=== PATIENT | female | born 1990 | race Caucasian/White ===

== ENCOUNTER 2019-06-18 13:48 | Emergency (ER) | payer OTHER ==
--- NOTE | 2019-06-18 14:15 | EDM.PDOC ---
ED HPI GENERAL MEDICAL PROBLEM - General Chief Complaint: Chest Pain Stated Complaint: CHEST PAIN Time Seen by Provider: 06/18/19 14:14 Source of Information: Reports: Patient, RN, RN Notes Reviewed History Limitations: Reports: No Limitations - History of Present Illness INITIAL COMMENTS - FREE TEXT/NARRATIVE: Pt presents to ER by POV with c/o squeezing chest pain that began this morning at approx. 1145HRS, and was associated with numbness and tingling from the B/L elbows to the finger tips. Pt states that has happened many times in the past, but usually goes away after a few minutes either on it's own or if she drinks cold water. Pt reports Hx of multiple episodes of "vasovagal syncope", and acid reflux. She denies any Hx of heart disease or arrhythmias. Onset: Today Duration: Chronic, Intermittent, Recurring, Resolved Prior to Arrival Location: Reports: Chest, Abdomen Quality: Reports: Burning (Acid reflux), Same as Previous Episode, Other ( Squeezing) Severity: Severe Improves with: Reports: Other (Drinking cold water) Worsens with: Reports: Eating Associated Symptoms: Reports: No Other Symptoms Treatments TITLE CLERK: Reports: Other Medication(s) (Omeprazole) Chest Pain Score (Numeric/FACES): 7 - Related Data Allergies Allergy/AdvReac Type Severity Reaction Status Date / Time No Known Allergies Allergy Verified 12/05/15 13:05 Home Meds: Home Meds . [No Known Home Meds] 12/05/15 [History] Past Medical History Cardiovascular History: Reports: Syncope Gastrointestinal History: Reports: GERD Endocrine/Metabolic History: Reports: Obesity/BMI 30+ Social & Family History - Family History Family Medical History: Noncontributory - Tobacco Use Smoking Status *Q: Never Smoker ED ROS GENERAL - Review of Systems Review Of Systems: ROS reveals no pertinent complaints other than HPI. - Physical Exam Exam: See Below Exam Limited By: No Limitations General Appearance: Alert, WD/WN, No Apparent Distress, Obese Eye Exam: Bilateral Eye: EOMI, Normal Inspection, PERRL Nose: Normal Inspection, No Blood Throat/Mouth: Normal Inspection, Normal Lips, Normal Teeth, Normal Gums, Normal Oropharynx, Normal Voice, No Airway Compromise Head Exam: Atraumatic, Normocephalic Neck: Normal Inspection, Supple, Non-Tender, Full Range of Motion. No: Lymphadenopathy (L), Lymphadenopathy (R) Respiratory/Chest: No Respiratory Distress, Lungs Clear, Normal Breath Sounds, No Accessory Muscle Use, Chest Non-Tender Cardiovascular: Normal Peripheral Pulses, Regular Rate, Rhythm, No Edema, No Gallop, No JVD, No Murmur, No Rub GI/Abdominal: Normal Bowel Sounds, Soft, No Organomegaly, No Distention, No Abnormal Bruit, No Mass, Tender (Epigastric region). No: Guarding, Rigid, Rebound (Female) Exam: Deferred Rectal (Female) Exam: Deferred Neuro Exam (Abbreviated): Alert, Oriented, CN II-XII Intact, Normal Cognition, Normal Gait, No Motor/Sensory Deficits Back Exam: Normal Inspection Extremities: Normal Inspection, Normal Range of Motion, Non-Tender, No Pedal Edema, Normal Capillary Refill Psychiatric: Normal Affect, Normal Mood Skin Exam: Warm, Dry, Intact, Normal Color, No Rash EKG INTERPRETATION EKG Date: 06/18/19 Time: 14:05 Rhythm: Other (SR) Rate (Beats/Min): 57 [place]: Normal P-Wave: Present QRS: Normal ST-T: Normal QT: Normal Comparison: NA - No Prior EKG Course - Vital Signs Last Recorded V/S: Last Vital Signs Temp 98.5 F 06/18/19 13:52 Pulse 61 06/18/19 14:27 Resp 21 H 06/18/19 14:27 BP 109/72 06/18/19 14:27 Pulse Ox 100 06/18/19 14:27 Orthostatic Blood Pressure [ 109/72 Standing] Orthostatic Blood Pressure [ 114/68 Sitting] Orthostatic Blood Pressure [ 110/67 Supine] Not orthostatic. - Orders/Labs/Meds Orders: Active Orders 24 hr Category Date Time Status EKG 12 Lead [EKG Documentation Completion] [RC] STAT Care 06/18/19 14:21 Active Orthostatic Vital Signs [RC] ASDIRECTED Care 06/18/19 14:27 Active Chest 1V Frontal [CR] Stat Exams 06/18/19 14:21 Taken HCG QUALITATIVE,URINE [URCHEM] Stat Lab 06/18/19 14:49 Ordered TSH ULTRASENSITIVE [CHEM] Stat Lab 06/18/19 14:30 Received UA RFX TRICIA AND CULT IF INDIC [URIN] Stat Lab 06/18/19 14:49 Ordered Labs: Laboratory Tests 06/18/19 06/18/19 06/18/19 Range/Units 14:30 14:30 14:30 WBC 5.1 (5.0-10.0) 10^3/uL RBC 4.24 (4.2-5.4) 10^6/uL Hgb 13.4 (12.0-16.0) g/dL Hct 38.9 (37.0-47.0) % MCV 91.7 (80-100) fL MCH 31.6 (27.0-34.0) pg MCHC 34.4 (33.0-35.0) g/dL Plt Count 223 (150-450) 10^3/uL Neut % (Auto) 54.7 (42.2-75.2) % Lymph % (Auto) 35.2 (20.5-50.1) % [place] % (Auto) 7.0 (2-8) % Eos % (Auto) 2.7 (1.0-3.0) % Baso % (Auto) 0.4 (0.0-1.0) % D-Dimer, Quantitative < 100 (0-400) ng/mL Sodium 137 (135-145) mmol/L Potassium 4.2 (3.6-5.0) mmol/L Chloride 103 (101-111) mmol/L Carbon Dioxide 27.0 (21.0-31.0) mmol/L Anion Gap 11.2 BUN 16 (7-18) mg/dL Creatinine 0.8 (0.6-1.3) mg/dL Est Cr Clr Drug Dosing 93.37 mL/min Estimated GFR (MDRD) > 60 BUN/Creatinine Ratio 20.00 Glucose 108 H (74-105) mg/dL Calcium 9.1 (8.4-10.2) mg/dl Magnesium 2.1 (1.8-2.5) mg/dL Total Bilirubin 0.7 (0.2-1.0) mg/dL AST 22 (10-42) IU/L ALT 31 (10-60) IU/L Alkaline Phosphatase 31 L (42-121) IU/L Troponin I < 0.02 (0.00-0.02) ng/ml Total Protein 6.9 (6.7-8.2) g/dl Albumin 4.0 (3.2-5.5) g/dl Globulin 2.9 Albumin/Globulin Ratio 1.38 Amylase 76 (28-100) U/L Lipase 39 (22-51) U/L Urine Color (YELLOW) Urine Appearance (CLEAR) Urine pH (5.0-9.0) Ur Specific [place] (1.005-1.030) Urine Protein (NEGATIVE) Urine Glucose (UA) (NEGATIVE) Urine Ketones (NEGATIVE) Urine Occult Blood (NEGATIVE) Urine Nitrite (NEGATIVE) Urine Bilirubin (NEGATIVE) Urine Urobilinogen (0.2-1.0) mg/dL Ur Leukocyte Esterase (NEGATIVE) Urine HCG, Qual 06/18/19 06/18/19 Range/Units 14:35 14:35 WBC (5.0-10.0) 10^3/uL RBC (4.2-5.4) 10^6/uL Hgb (12.0-16.0) g/dL Hct (37.0-47.0) % MCV (80-100) fL MCH (27.0-34.0) pg MCHC (33.0-35.0) g/dL Plt Count (150-450) 10^3/uL Neut % (Auto) (42.2-75.2) % Lymph % (Auto) (20.5-50.1) % [place] % (Auto) (2-8) % Eos % (Auto) (1.0-3.0) % Baso % (Auto) (0.0-1.0) % D-Dimer, Quantitative (0-400) ng/mL Sodium (135-145) mmol/L Potassium (3.6-5.0) mmol/L Chloride (101-111) mmol/L Carbon Dioxide (21.0-31.0) mmol/L Anion Gap BUN (7-18) mg/dL Creatinine (0.6-1.3) mg/dL Est Cr Clr Drug Dosing mL/min Estimated GFR (MDRD) BUN/Creatinine Ratio Glucose (74-105) mg/dL Calcium (8.4-10.2) mg/dl Magnesium (1.8-2.5) mg/dL Total Bilirubin (0.2-1.0) mg/dL AST (10-42) IU/L ALT (10-60) IU/L Alkaline Phosphatase (42-121) IU/L Troponin I (0.00-0.02) ng/ml Total Protein (6.7-8.2) g/dl Albumin (3.2-5.5) g/dl Globulin Albumin/Globulin Ratio Amylase (28-100) U/L Lipase (22-51) U/L Urine Color Light yellow (YELLOW) Urine Appearance Clear (CLEAR) Urine pH 7.5 (5.0-9.0) Ur Specific [place] 1.015 (1.005-1.030) Urine Protein Negative (NEGATIVE) Urine Glucose (UA) Negative (NEGATIVE) Urine Ketones Negative (NEGATIVE) Urine Occult Blood Negative (NEGATIVE) Urine Nitrite Negative (NEGATIVE) Urine Bilirubin Negative (NEGATIVE) Urine Urobilinogen 0.2 (0.2-1.0) mg/dL Ur Leukocyte Esterase Negative (NEGATIVE) Urine HCG, Qual Negative - Radiology Interpretation Free Text/Narrative:: XR Chest: no acute process, see Rad. report. Departure - Departure Time of Disposition: 15:10 Disposition: Home, Self-Care 01 Condition: Good Clinical Impression: Atypical chest pain - Discharge Information *PRESCRIPTION DRUG MONITORING PROGRAM REVIEWED*: No *COPY OF PRESCRIPTION DRUG MONITORING REPORT IN PATIENT LANEY: No Instructions: Esophageal Spasm, Syncope, Nonspecific Chest Pain Forms: ED Department Discharge Additional Instructions: Rx: Protonix 40mg Follow up in clinic for recheck and consideration of a cardiac event monitor and referral to a GI specialist if the coal handler is negative. - My Orders Last 24 Hours: My Active Orders 06/18/19 14:21 EKG 12 Lead [EKG Documentation Completion] [RC] STAT Chest 1V Frontal [CR] Stat 06/18/19 14:27 Orthostatic Vital Signs [RC] ASDIRECTED 06/18/19 14:30 TSH ULTRASENSITIVE [CHEM] Stat 06/18/19 14:49 HCG QUALITATIVE,URINE [URCHEM] Stat UA RFX TRICIA AND CULT IF INDIC [URIN] Stat - Assessment/Plan Last 24 Hours: My Active Orders 06/18/19 14:21 EKG 12 Lead [EKG Documentation Completion] [RC] STAT Chest 1V Frontal [CR] Stat 06/18/19 14:27 Orthostatic Vital Signs [RC] ASDIRECTED 06/18/19 14:30 TSH ULTRASENSITIVE [CHEM] Stat 06/18/19 14:49 HCG QUALITATIVE,URINE [URCHEM] Stat UA RFX TRICIA AND CULT IF INDIC [URIN] Stat
[2019-06-18 14:30] VITALS: BP 109/72; PULSE 61
[2019-06-18 15:01] LABS: ANION GAP 11.2; CHLORIDE,CL 103 mmol/L (101-111); SODIUM,NA 137 mmol/L (135-145)
--- NOTE | 2019-06-18 15:21 | CR ---
EXAMINATION: Chest 1V Frontal SEX: Female AGE: 28 years CLINICAL HISTORY: 28-year-old female complaining of chest pain. INTERPRETATION: (Upright AP chest film) 1. Normal cardiac silhouette. No pulmonary venous congestion, cephalization of flow, alveolar edema or dependent effusion. 2. External quality assurance monitor final leads. 3. No lung mass, hilar lymphadenopathy or focal lobar pneumonia. 4. No atelectasis/collapse. 5. No pneumothorax or free subdiaphragmatic air. CONCLUSION: Negative exam.
== END 2019-06-18 15:23 | disposition home or self-care (01) ==
LOC: DL.ED 13:48
DX: R07.89 Other chest pain (principal); E66.9 Obesity, unspecified; Z68.33 Body mass index [BMI] 33.0-33.9, adult
CPT/HCPCS: 36415; 71045; 80053; 81003; 81025; 82150; 83690; 83735; 84443; 84484; 85025; 85379; 93005; 99285-25

== ENCOUNTER 2020-12-26 01:43 | Emergency (ER) | payer OTHER ==
[2020-12-26] MEDS ORDERED: Ondansetron 4 MG/2 ML SDV IVPUSH ONE (02:00)
[2020-12-26] MEDS ORDERED: Sodium Chloride 0.9% 1,000 ML IV ONE (02:00)
[2020-12-26 02:05] VITALS: BP 120/76; PULSE 68
--- NOTE | 2020-12-26 02:46 | EDM.PDOC ---
ED HPI GENERAL MEDICAL PROBLEM - General Stated Complaint: MIGRAINE, HORRIBLE Time Seen by Provider: 12/26/20 02:30 Source of Information: Reports: Patient, RN, RN Notes Reviewed History Limitations: Reports: No Limitations - History of Present Illness INITIAL COMMENTS - FREE TEXT/NARRATIVE: Patient presents to the ED via personal vehicle with complaints of headache. The patient attest to a history of migraines, but is not currently on control therapy. The patient states her headache symptoms began at approximately 1800 yesterday and has progressively worsened in that time. The headache has been refractory to Tylenol which she took at midnight. She attests to photophobia and nausea, as well. She denies recent illness, fever, shaking chills, vision changes, cough, sore throat, palpitations, vomiting, or diarrhea. She states her LMP was 12/12/20. The patient denies tobacco or recreational drug use. She does attest to alcohol use and reports she drank three 12oz cans of beer around noon yesterday while golfing as well as one seltzer drink with dinner around 1700. The patient does attest to recent history of a concussion about two to three weeks ago due to a softball flying into her left eye. She denies thunderclap headaches, changes in vision, projectile vomiting, mentation changes, or seizure-like activity. Headache Pain Score (Numeric/FACES): 10 - Related Data Allergies Allergy/AdvReac Type Severity Reaction Status Date / Time No Known Allergies Allergy Verified 12/26/20 02:00 Home Meds: Home Meds . [No Known Home Meds] 12/05/15 [History] Past Medical History Cardiovascular History: Reports: Syncope Gastrointestinal History: Reports: GERD Neurological History: Reports: Migraines Endocrine/Metabolic History: Reports: Obesity/BMI 30+ Social & Family History - Family History Family Medical History: No Pertinent Family History - Tobacco Use Tobacco Use Status *Q: Never Tobacco User Second Hand Smoke Exposure: No - Caffeine Use Caffeine Use: Reports: Coffee - Recreational Drug Use Recreational Drug Use: No ED ROS GENERAL - Review of Systems Review Of Systems: Comprehensive ROS is negative, except as noted in HPI. - Physical Exam Exam: See Below Exam Limited By: No Limitations General Appearance: Alert, No Apparent Distress Eye Exam: Bilateral Eye: EOMI, Normal Inspection, PERRL (4mm) Ears: Normal External Exam, Normal Canal, Hearing Grossly Normal, Normal TMs Nose: Normal Inspection, Normal Mucosa, No Blood Throat/Mouth: Normal Inspection, Normal Oropharynx, Normal Voice, No Airway Compromise Head Exam: Atraumatic, Normocephalic, Facial Abrasions (Superficial, scabbed abrasion to left medial eyelid), Facial Tenderness (To palpation of left periorbital area). No: Facial Ecchymosis, Facial Lacerations, Facial Swelling Neck: Normal Inspection, Supple, Non-Tender, Full Range of Motion Respiratory/Chest: No Respiratory Distress, Lungs Clear, Normal Breath Sounds, No Accessory Muscle Use, Chest Non-Tender Cardiovascular: Normal Peripheral Pulses, Regular Rate, Rhythm, No Edema, No Gallop, No JVD, No Murmur, No Rub GI/Abdominal: Normal Bowel Sounds, Soft, Non-Tender, No Distention, No Mass, Pelvis Stable (Female) Exam: Deferred Rectal (Female) Exam: Deferred Neuro Exam (Abbreviated): Alert, Oriented, CN II-XII Intact, Normal Cognition, Normal Gait, Normal Reflexes, No Motor/Sensory Deficits Back Exam: Normal Inspection, Full Range of Motion Extremities: Normal Inspection, Normal Range of Motion, Non-Tender, No Pedal Edema, Normal Capillary Refill Psychiatric: Normal Affect, Normal Mood Skin Exam: Warm, Dry, Intact, Normal Color, No Rash Course - Vital Signs Last Recorded V/S: Last Vital Signs Temp 97.6 F 12/26/20 02:00 Pulse 68 12/26/20 02:00 Resp 16 12/26/20 02:00 BP 120/76 12/26/20 02:00 Pulse Ox 97 12/26/20 02:00 - Orders/Labs/Meds Meds: Medications Discontinued Medications Generic Name Dose Route Start Last Admin Trade Name Freq PRN Reason Stop Dose Admin Diphenhydramine HCl 50 mg 12/26/20 03:51 12/26/20 03:57 Diphenhydramine 50 Mg/Ml Sdv IVPUSH 12/26/20 03:52 50 mg ONETIME ONE Administration Sodium Chloride 1,000 mls @ 999 mls/hr 12/26/20 02:00 12/26/20 02:27 Normal Saline IV 12/26/20 03:00 999 mls/hr .BOLUS ONE Administration Ketorolac Tromethamine 30 mg 12/26/20 03:51 12/26/20 03:57 Ketorolac 30 Mg/Ml Sdv IVPUSH 12/26/20 03:52 30 mg ONETIME ONE Administration Ondansetron HCl 4 mg 12/26/20 02:00 12/26/20 02:27 Ondansetron 4 Mg/2 Ml Sdv IVPUSH 12/26/20 02:01 4 mg ONETIME ONE Administration - Re-Assessments/Exams Free Text/Narrative Re-Assessment/Exam: 12/26/20 Will treat migraine headache with NS 1L IVB. Will administer Zofran 4mg IVP for nausea. Patient states pressure of migraine has improved but continues to experience pain; will treat with Toradol 30mg IVP and Benadryl 50mg IVP. Patient verbalized improvement in headache following medications. Red flag signs and symptoms which would warrant reevaluation reviewed. Patient verbalized understanding and agreement with the plan of care. Departure - Departure Time of Disposition: 04:26 Disposition: Home, Self-Care 01 Condition: Good Clinical Impression: Migraine Qualifiers: Migraine type: without aura Status migrainosus presence: without status migrainosus Intractability: not intractable Qualified Code(s): G43.009 - Migraine without aura, not intractable, without status migrainosus - Discharge Information *PRESCRIPTION DRUG MONITORING PROGRAM REVIEWED*: Not Applicable *COPY OF PRESCRIPTION DRUG MONITORING REPORT IN PATIENT LANEY: Not Applicable Instructions: Migraine Headache, [id number] Forms: ED Department Discharge Additional Instructions: 1.) Follow up with your primary care provider regarding today's visit. 2.) You may take acetaminophen (Tylenol) 650mg for breakthrough pain. Avoid ibuprofen, aspirin, or other NSAIDS for at least 6 hours following Toradol administration. 3.) Drink plenty of water to stay hydrated. Sepsis Event Note (ED) - Evaluation Sepsis Screening Result: No Definite Risk - Focused Exam Vital Signs: Vital Signs Temp Pulse Resp BP Pulse Ox 12/26/20 02:00 97.6 F 68 16 120/76 97
[2020-12-26] MEDS ORDERED: diphenhydrAMINE 50 MG/ML SDV IVPUSH ONE (03:51)
[2020-12-26] MEDS ORDERED: Ketorolac 30 MG/ML SDV IVPUSH ONE (03:51)
== END 2020-12-26 04:32 | disposition home or self-care (01) ==
LOC: DL.ED 01:43
DX: G43.009 Migraine without aura, not intractable, without status migrainosus (principal); E66.9 Obesity, unspecified; Z68.33 Body mass index [BMI] 33.0-33.9, adult
CPT/HCPCS: 96374; 96375; 99283; 99283-25; J1200; J1885; J2405; J7030